=== PATIENT | male | born 1950 | race Two or more races ===

== ENCOUNTER 2018-07-19 01:50 | Emergency (ER) | payer OTHER ==
[~2018-07-19] VITALS: Ht 172.7 cm; Wt 79.4 kg
[2018-07-19] MEDS ORDERED: CRESTOR40 MG (02:02)
[2018-07-19] MEDS ORDERED: PLAVIX75 MG (02:02)
[2018-07-19] MEDS ORDERED: ASPIR 8181 MG (02:02)
[2018-07-19] MEDS ORDERED: LEVSIN/SL0.125 MG SL (05:20)
[2018-07-19] MEDS ORDERED: PEPCID AC20 MG PO (05:20)
[2018-07-19] MEDS ORDERED: KETO10TA2 PO (05:20)
== END 2018-07-19 05:41 ==
LOC: ER 01:50
DX: K80.20 Calculus of gallbladder without cholecystitis without obstruction (principal); R10.10 Upper abdominal pain, unspecified

== ENCOUNTER 2018-11-01 07:24 | Outpatient (CLI) | payer OTHER ==
[~2018-11-01 07:24] MED LIST: ASPIR 8181 MG; CRESTOR40 MG; KETO10TA2 PO; LEVSIN/SL0.125 MG SL; PEPCID AC20 MG PO; PLAVIX75 MG
== END 2018-11-01 07:31 | disposition home or self-care (01) ==
LOC: TOM 07:24
DX: K80.80 Other cholelithiasis without obstruction (principal)

== ENCOUNTER 2018-11-08 13:36 | Outpatient (CLI) | payer OTHER | END 2018-11-08 14:20 | disposition home or self-care (01) | LOC: LAB 13:36 | DX: D69.49 Other primary thrombocytopenia (principal) ==

== ENCOUNTER 2018-11-14 11:46 | Outpatient (CLI) | payer OTHER | END 2018-11-14 11:59 | disposition home or self-care (01) | LOC: RAD 11:46 | DX: M25.561 Pain in right knee (principal); M25.562 Pain in left knee ==

== ENCOUNTER 2018-11-21 07:14 | Outpatient (CLI) | payer OTHER | END 2018-11-21 07:28 | disposition home or self-care (01) | LOC: NUCLEAR 07:14 | DX: K80.20 Calculus of gallbladder without cholecystitis without obstruction (principal) | CPT/HCPCS: 78227; A9537 ==

== ENCOUNTER 2019-01-24 14:08 | Outpatient (CLI) | payer OTHER | END 2019-01-24 14:16 | disposition home or self-care (01) | LOC: RAD 14:08 | DX: J44.1 Chronic obstructive pulmonary disease with (acute) exacerbation (principal) ==

== ENCOUNTER 2019-01-30 07:25 | Outpatient (CLI) | payer OTHER | END 2019-01-30 09:32 | disposition home or self-care (01) | LOC: LAB 07:25 | DX: Z79.01 Long term (current) use of anticoagulants (principal); K80.10 Calculus of gallbladder with chronic cholecystitis without obstruction; I10 Essential (primary) hypertension ==

== ENCOUNTER 2019-02-01 05:50 | Day surgery (SDC) | payer OTHER ==
[2019-02-01] MEDS ORDERED: PERCOCET 5-3251 EACH PO (11:00)
[2019-02-01] MEDS ORDERED: POLY119PG PO (11:01)
[2019-02-01] MEDS ORDERED: SURFAK240 M1 PO (11:01)
== END 2019-02-01 13:25 | disposition home or self-care (01) ==
LOC: CIR.AMB 05:50
DX: K80.10 Calculus of gallbladder with chronic cholecystitis without obstruction (principal); K42.9 Umbilical hernia without obstruction or gangrene; K43.9 Ventral hernia without obstruction or gangrene

== ENCOUNTER 2019-05-25 12:27 | Outpatient (CLI) | payer OTHER ==
[~2019-05-25 12:27] MED LIST changes: +PERCOCET 5-3251 EACH PO; +POLY119PG PO; +SURFAK240 M1 PO
== END 2019-05-25 12:30 | disposition home or self-care (01) ==
LOC: LAB 12:27
DX: I10 Essential (primary) hypertension (principal); K40.90 Unilateral inguinal hernia, without obstruction or gangrene, not specified as recurrent

== ENCOUNTER 2019-05-31 06:54 | Day surgery (SDC) | payer OTHER ==
[2019-05-31] MEDS ORDERED: SURFAK240 M1 PO (12:47)
[2019-05-31] MEDS ORDERED: POLY119PG PO ×2 (12:47→12:54)
[2019-05-31] MEDS ORDERED: PERCOCET 5-3251 EACH PO (12:47)
[2019-05-31] MEDS ORDERED: NEURONTIN800 MG PO (12:48)
[2019-05-31] MEDS ORDERED: ULTRACET PO (12:54)
== END 2019-05-31 21:35 | disposition home or self-care (01) ==
LOC: CIR.AMB 06:54
DX: K40.90 Unilateral inguinal hernia, without obstruction or gangrene, not specified as recurrent (principal); K42.0 Umbilical hernia with obstruction, without gangrene; K43.0 Incisional hernia with obstruction, without gangrene

== ENCOUNTER → 2020-12-20 07:23 | Outpatient (CLI) | payer OTHER ==
[~2020-12-20 07:23] MED LIST changes: +NEURONTIN800 MG PO; +ULTRACET PO
== END | disposition home or self-care (01) ==
LOC: NUCLEAR 07:00
PROVIDERS: ATTEND Internal Medicine Cardiovascular Disease
DX: I50.1 Left ventricular failure, unspecified (principal)
CPT/HCPCS: 78452; 93017; A9500; J0153

== ENCOUNTER 2021-01-16 11:08 | Outpatient (CLI) | payer OTHER | END 2021-01-16 11:15 | disposition home or self-care (01) | LOC: SONOGRAMA 11:08 | PROVIDERS: ATTEND Urology | DX: Q61.01 Congenital single renal cyst (principal); N40.0 Benign prostatic hyperplasia without lower urinary tract symptoms ==

== ENCOUNTER → 2021-01-16 12:03 | Outpatient (CLI) | payer OTHER | END | disposition home or self-care (01) | LOC: LAB 12:03 | PROVIDERS: ATTEND Urology | DX: N40.0 Benign prostatic hyperplasia without lower urinary tract symptoms (principal); R97.20 Elevated prostate specific antigen [PSA]; R31.1 Benign essential microscopic hematuria; B96.89 Other specified bacterial agents as the cause of diseases classified elsewhere ==

== ENCOUNTER → 2021-05-02 07:12 | Outpatient (CLI) | payer OTHER | END | disposition home or self-care (01) | LOC: LAB 07:12 | PROVIDERS: ATTEND Internal Medicine Cardiovascular Disease | DX: I11.9 Hypertensive heart disease without heart failure (principal); E78.2 Mixed hyperlipidemia; E11.9 Type 2 diabetes mellitus without complications ==

== ENCOUNTER 2021-06-26 11:58 | Outpatient (CLI) | payer OTHER | END 2021-06-26 12:03 | disposition home or self-care (01) | LOC: RAD 11:58 | PROVIDERS: ATTEND Internal Medicine | DX: M54.2 Cervicalgia (principal); M15.0 Primary generalized (osteo)arthritis ==

== ENCOUNTER 2021-07-14 07:18 | Outpatient (CLI) | payer OTHER | END 2021-07-14 07:23 | disposition home or self-care (01) | LOC: MRI 07:18 | PROVIDERS: ATTEND Internal Medicine | DX: M54.2 Cervicalgia (principal) | CPT/HCPCS: 72141 ==

== ENCOUNTER 2021-07-22 06:54 | Outpatient (CLI) | payer OTHER | END 2021-07-22 07:02 | disposition home or self-care (01) | LOC: LAB 06:54 | PROVIDERS: ATTEND Internal Medicine | DX: N40.0 Benign prostatic hyperplasia without lower urinary tract symptoms (principal); R97.20 Elevated prostate specific antigen [PSA]; R31.1 Benign essential microscopic hematuria; Z68.30 Body mass index [BMI] 30.0-30.9, adult; E78.00 Pure hypercholesterolemia, unspecified; E55.9 Vitamin D deficiency, unspecified; E11.69 Type 2 diabetes mellitus with other specified complication; D50.0 Iron deficiency anemia secondary to blood loss (chronic); N39.0 Urinary tract infection, site not specified ==

== ENCOUNTER 2021-10-06 08:38 | Outpatient (CLI) | payer OTHER | END 2021-10-06 08:41 | disposition home or self-care (01) | LOC: SONOGRAMA 08:38 | PROVIDERS: ATTEND Urology | DX: R31.1 Benign essential microscopic hematuria (principal); R33.9 Retention of urine, unspecified; N40.0 Benign prostatic hyperplasia without lower urinary tract symptoms ==

== ENCOUNTER 2021-11-13 08:50 | Outpatient (CLI) | payer OTHER | END 2021-11-13 09:17 | disposition home or self-care (01) | LOC: LAB 08:50 | PROVIDERS: ATTEND Internal Medicine Hematology & Oncology | DX: D50.8 Other iron deficiency anemias (principal); I10 Essential (primary) hypertension; R79.9 Abnormal finding of blood chemistry, unspecified; R74.02 Elevation of levels of lactic acid dehydrogenase [LDH]; K76.89 Other specified diseases of liver; D69.6 Thrombocytopenia, unspecified; D51.1 Vitamin B12 deficiency anemia due to selective vitamin B12 malabsorption with proteinuria; D51.0 Vitamin B12 deficiency anemia due to intrinsic factor deficiency; B17.9 Acute viral hepatitis, unspecified; Z11.59 Encounter for screening for other viral diseases; E06.3 Autoimmune thyroiditis; D68.32 Hemorrhagic disorder due to extrinsic circulating anticoagulants; I25.119 Atherosclerotic heart disease of native coronary artery with unspecified angina pectoris; Z98.61 Coronary angioplasty status; N41.9 Inflammatory disease of prostate, unspecified ==

== ENCOUNTER 2022-02-27 07:11 | Outpatient (CLI) | payer OTHER | END 2022-02-27 07:12 | disposition home or self-care (01) | LOC: NUCLEAR 07:11 | PROVIDERS: ATTEND Internal Medicine Cardiovascular Disease | DX: I25.9 Chronic ischemic heart disease, unspecified (principal); R07.89 Other chest pain | CPT/HCPCS: 78452; 93017; A9500 ==

== ENCOUNTER 2022-05-04 10:13 | Outpatient (CLI) | payer OTHER | END 2022-05-04 15:27 | disposition home or self-care (01) | LOC: LAB 10:13 | PROVIDERS: ATTEND Internal Medicine Hematology & Oncology | DX: D50.8 Other iron deficiency anemias (principal); R79.9 Abnormal finding of blood chemistry, unspecified; I10 Essential (primary) hypertension; R74.02 Elevation of levels of lactic acid dehydrogenase [LDH]; K76.89 Other specified diseases of liver; D51.8 Other vitamin B12 deficiency anemias; D51.1 Vitamin B12 deficiency anemia due to selective vitamin B12 malabsorption with proteinuria; R97.0 Elevated carcinoembryonic antigen [CEA]; R97.8 Other abnormal tumor markers; D68.32 Hemorrhagic disorder due to extrinsic circulating anticoagulants; N41.9 Inflammatory disease of prostate, unspecified; Z98.61 Coronary angioplasty status; I25.119 Atherosclerotic heart disease of native coronary artery with unspecified angina pectoris ==

== ENCOUNTER 2023-03-17 11:55 | Outpatient (CLI) | payer OTHER | END 2023-03-17 11:58 | disposition home or self-care (01) | LOC: RAD 11:55 | PROVIDERS: ATTEND Internal Medicine | DX: M75.80 Other shoulder lesions, unspecified shoulder (principal) ==

== ENCOUNTER 2023-05-06 12:11 | Outpatient (CLI) | payer OTHER ==
[2023-05-06 12:54] LABS: HEMATOCRIT 42.7 % (39.0-48.0); HEMOGLOBIN 14.5 g/dL (13-16.00); MEAN CELL VOLUME 94.5 fL (80.0-100.00); MEAN CORPUSCULAR HGB CONC 33.9 g/dl (32.0-36.0); RED BLOOD COUNT 4.51 M/uL (4.00-6.00); RED CELL DISTRIBUTION WIDTH 14.2 % (11.5-14.5)
[2023-05-06 12:55] LABS: PLATELET COUNT 120 K/uL (150-450)
[2023-05-06 13:36] LABS: BILIRUBIN TOTAL 1.15 mg/dL (0.3-1.2); CALCIUM 8.8 mg/dL (8.5-10.1); CREATININE SERUM 0.84 mg/dL (0.70-1.30); GFR 89.57; POTASSIUM 4.29 mEq/L (3.5-5.1); PROSTATIC SPECIFIC ANTIGEN 3.97 NG/ML (0.010-4.00)
[2023-05-06 13:58] LABS: FOLIC ACID 16.13 ng/ml (4.78-20)
[2023-05-06 14:08] LABS: MANUAL PLATELET COUNT 264
[2023-05-06 14:09] LABS: PLATELET ESTIMATE NORMAL (NORMAL)
== END 2023-05-06 12:13 | disposition home or self-care (01) ==
LOC: LAB 12:11
PROVIDERS: ATTEND Internal Medicine Hematology & Oncology
DX: R79.9 Abnormal finding of blood chemistry, unspecified (principal); I10 Essential (primary) hypertension; R74.02 Elevation of levels of lactic acid dehydrogenase [LDH]; K76.89 Other specified diseases of liver; D63.8 Anemia in other chronic diseases classified elsewhere; D55.0 Anemia due to glucose-6-phosphate dehydrogenase [G6PD] deficiency; D51.8 Other vitamin B12 deficiency anemias; R97.0 Elevated carcinoembryonic antigen [CEA]; R97.8 Other abnormal tumor markers; D47.2 Monoclonal gammopathy; C90.00 Multiple myeloma not having achieved remission; R97.20 Elevated prostate specific antigen [PSA]; D69.6 Thrombocytopenia, unspecified; D68.32 Hemorrhagic disorder due to extrinsic circulating anticoagulants; D51.3 Other dietary vitamin B12 deficiency anemia; I25.119 Atherosclerotic heart disease of native coronary artery with unspecified angina pectoris; Z98.61 Coronary angioplasty status; N41.9 Inflammatory disease of prostate, unspecified

== ENCOUNTER 2024-02-24 13:23 | Outpatient (CLI) | payer OTHER ==
[2024-02-24 13:39] LABS: HEMATOCRIT 44.7 % (39.0-48.0); HEMOGLOBIN 15.2 g/dL (13-16.00); MEAN CELL VOLUME 95.1 fL (80.0-100.00); MEAN CORPUSCULAR HEMOGLOBIN 32.3 pg (27.00-32.0); MEAN CORPUSCULAR HGB CONC 33.9 g/dl (32.0-36.0); PLATELET COUNT 135 K/uL (150-450); RED CELL DISTRIBUTION WIDTH 13.8 % (11.5-14.5)
== END 2024-02-24 13:24 | disposition home or self-care (01) ==
LOC: LAB 13:23
PROVIDERS: ATTEND Internal Medicine Cardiovascular Disease
DX: D64.9 Anemia, unspecified (principal)

== ENCOUNTER 2024-02-24 13:41 | Outpatient (CLI) | payer OTHER | END 2024-02-24 13:45 | disposition home or self-care (01) | LOC: SONOGRAMA 13:41 | PROVIDERS: ATTEND Internal Medicine Cardiovascular Disease | DX: S30.1XXA Contusion of abdominal wall, initial encounter (principal); M79.81 Nontraumatic hematoma of soft tissue ==

== ENCOUNTER 2024-04-21 11:20 | Outpatient (CLI) | payer OTHER | END 2024-04-21 11:27 | disposition home or self-care (01) | LOC: RAD 11:20 | PROVIDERS: ATTEND Internal Medicine Rheumatology | DX: M19.041 Primary osteoarthritis, right hand (principal); M19.042 Primary osteoarthritis, left hand ==

== ENCOUNTER 2024-05-26 08:29 | Outpatient (CLI) | payer OTHER ==
[2024-05-26 09:01] LABS: HEMATOCRIT 44.2 % (39.0-48.0); HEMOGLOBIN 15.3 g/dL (13-16.00); MEAN CELL VOLUME 93.1 fL (80.0-100.00); MEAN CORPUSCULAR HEMOGLOBIN 32.1 pg (27.00-32.0); MEAN CORPUSCULAR HGB CONC 34.5 g/dl (32.0-36.0); PLATELET COUNT 135 K/uL (150-450); RED BLOOD COUNT 4.75 M/uL (4.00-6.00); RED CELL DISTRIBUTION WIDTH 13.7 % (11.5-14.5)
[2024-05-26 10:19] LABS: MANUAL PLATELET COUNT 212; PLATELET ESTIMATE NORMAL (NORMAL)
[2024-05-26 10:32] LABS: % SATURACION 27.6 % (20-50); ALBUMIN 3.9 gm/dL (3.4-5.0); BILIRUBIN TOTAL 0.68 mg/dL (0.3-1.2); CALCIUM 9.2 mg/dL (8.5-10.1); CREATININE SERUM 0.85 mg/dL (0.70-1.30); FERRITIN 150.3 NG/ML (26-388); GFR 88.11; POTASSIUM 4.49 mEq/L (3.5-5.1); PROSTATIC SPECIFIC ANTIGEN 3.89 NG/ML (0.010-4.00); TOTAL PROTEIN 6.9 gm/dL (6.4-8.2)
[2024-05-26 12:03] LABS: FOLIC ACID 11.96 ng/ml (4.78-20); VITAMIN D3 25 HYDROXY 19.88 ng/ml (30-120)
== END 2024-05-26 08:30 | disposition home or self-care (01) ==
LOC: LAB 08:29
PROVIDERS: ATTEND Internal Medicine Hematology & Oncology
DX: D69.6 Thrombocytopenia, unspecified (principal); D50.8 Other iron deficiency anemias; D51.3 Other dietary vitamin B12 deficiency anemia; I10 Essential (primary) hypertension; I25.119 Atherosclerotic heart disease of native coronary artery with unspecified angina pectoris; Z98.61 Coronary angioplasty status; N41.9 Inflammatory disease of prostate, unspecified; R79.9 Abnormal finding of blood chemistry, unspecified; K76.89 Other specified diseases of liver; R74.02 Elevation of levels of lactic acid dehydrogenase [LDH]; E55.9 Vitamin D deficiency, unspecified; R97.0 Elevated carcinoembryonic antigen [CEA]

== ENCOUNTER → 2024-08-23 08:44 | Outpatient (CLI) | payer OTHER ==
[2024-08-23 09:23] LABS: HEMATOCRIT 44.2 % (39.0-48.0); HEMOGLOBIN 14.7 g/dL (13-16.00); MEAN CELL VOLUME 94.9 fL (80.0-100.00); MEAN CORPUSCULAR HEMOGLOBIN 31.6 pg (27.00-32.0); MEAN CORPUSCULAR HGB CONC 33.3 g/dl (32.0-36.0); RED BLOOD COUNT 4.65 M/uL (4.00-6.00); RED CELL DISTRIBUTION WIDTH 13.4 % (11.5-14.5)
[2024-08-23 09:32] LABS: PH,URINE 5.5 (5.0-8.0); URINE APPEARANCE Clear; URINE BILIRRUBIN Negative (NEGATIVE); URINE BLOOD Small; URINE COLOR Yellow; URINE GLUCOSE Negative (NEGATIVE); URINE KETONE Negative (NEGATIVE); URINE LEUKOCYTE Negative; URINE NITRATE Negative; URINE PROTEIN Negative (NEGATIVE); URINE UROBILINOGEN 0.2 E.U./dl
[2024-08-23 09:38] LABS: URINE BACTERIA 7.3 uL (0.0-1933); URINE RBC 25.4 uL (0.0-20.8); URINE WBC 4.1 uL (0.0-23.2)
[2024-08-23 09:47] LABS: URINE EPITHELIAL CELLS 0.7 uL (0.0-38.8)
[2024-08-23 09:59] LABS: PLATELET COUNT 124 K/uL (150-450)
[2024-08-23 10:36] LABS: BILIRUBIN TOTAL 0.77 mg/dL (0.3-1.2); CALCIUM 9.2 mg/dL (8.5-10.1); CHOL HDL RATIO 2.1 (0-5.0); CREATININE SERUM 0.88 mg/dL (0.70-1.30); GFR 84.65; GLOBULINA 2.9 G/DL (2.4-3.5); POTASSIUM 4.6 mEq/L (3.5-5.1); PROSTATIC SPECIFIC ANTIGEN 3.65 NG/ML (0.010-4.00); TOTAL PROTEIN 6.9 gm/dL (6.4-8.2); TSH 1.02 uIU/mL (0.358-3.74)
== END | disposition home or self-care (01) ==
LOC: LAB 08:44
PROVIDERS: ATTEND Internal Medicine
DX: D64.9 Anemia, unspecified (principal); E11.9 Type 2 diabetes mellitus without complications; E78.00 Pure hypercholesterolemia, unspecified; N39.0 Urinary tract infection, site not specified; E03.8 Other specified hypothyroidism; N18.31 Chronic kidney disease, stage 3a; Z12.11 Encounter for screening for malignant neoplasm of colon; E55.9 Vitamin D deficiency, unspecified; N40.0 Benign prostatic hyperplasia without lower urinary tract symptoms

== ENCOUNTER 2024-08-28 09:46 | Outpatient (CLI) | payer OTHER ==
[2024-08-28 11:09] LABS: ob NEGATIVE (NEGATIVE)
== END 2024-08-28 09:47 | disposition home or self-care (01) ==
LOC: LAB 09:46
PROVIDERS: ATTEND Internal Medicine
DX: D64.9 Anemia, unspecified (principal); E11.9 Type 2 diabetes mellitus without complications; E78.00 Pure hypercholesterolemia, unspecified; N39.0 Urinary tract infection, site not specified; E03.8 Other specified hypothyroidism; N18.31 Chronic kidney disease, stage 3a; Z12.11 Encounter for screening for malignant neoplasm of colon; E55.9 Vitamin D deficiency, unspecified; N40.0 Benign prostatic hyperplasia without lower urinary tract symptoms

== ENCOUNTER 2024-09-08 07:11 | Outpatient (CLI) | payer OTHER | END 2024-09-08 07:14 | disposition home or self-care (01) | LOC: RAD 07:11 | PROVIDERS: ATTEND Internal Medicine | DX: M15.0 Primary generalized (osteo)arthritis (principal); N50.811 Right testicular pain ==

== ENCOUNTER 2024-09-10 23:27 | Emergency (ER) | payer OTHER ==
[~2024-09-10] VITALS: Ht 172.7 cm; Wt 82.6 kg
[2024-09-11] MEDS ORDERED: CRESTOR40 MG PO (00:20)
[2024-09-11] MEDS ORDERED: TAMS0.4C PO (00:21)
[2024-09-11] MEDS ORDERED: ECOTRIN81 MG (00:21)
== END 2024-09-11 | disposition left against medical advice (07) ==
LOC: ER 23:30
DX: Z53.21 Procedure and treatment not carried out due to patient leaving prior to being seen by health care provider (principal)

== ENCOUNTER 2025-02-15 07:17 | Outpatient (CLI) | payer OTHER ==
[~2025-02-15 07:17] MED LIST changes: +CRESTOR40 MG PO; +ECOTRIN81 MG; +TAMS0.4C PO
[2025-02-15 08:18] LABS: BASO % 0.8 % (0.1-1.2); EOS # 0.13 (0.04-0.54); EOS % 1.7 % (0.7-7.0); LYMPH # 1.54 (1.18-3.74); LYMPH % 20.6 % (19.3-53.1); MEAN PLATELET VOLUME 10.30 fl (9.4-12.4); MONO # 0.77 (0.24-0.82); MONO % 10.3 % (4.7-12.5); NEUT # 4.91 (1.56-6.13); NEUT % 65.7 % (34.0-71.1); RED CELL DISTRIBUTION WIDTH 12.6 % (11.6-14.4)
[2025-02-15 09:38] LABS: % SATURACION 33.4 % (20-50); ALT/SGPT 40.0 U/L (12-78); AST/SGOT 23.0 U/L (15-37); BILIRUBIN TOTAL 0.95 mg/dL (0.3-1.2); BUN CREA RATIO 23.0 (7.0-25.0); CREATININE SERUM 0.9 mg/dL (0.70-1.30); FE 103.0 ug/dl (65-175); GFR 82.26; GLOBULINA 3.0 G/DL (2.4-3.5); GLUCOSE FASTING 88.0 mg/dL (65-100); LDH 188.0 U/L (87-241); OSMOLALITY SERUM 287.0 MOSM/KG (275-295); PROSTATIC SPECIFIC ANTIGEN 3.64 NG/ML (0.010-4.00)
[2025-02-15 13:51] LABS: MANUAL PLATELET COUNT 159
[2025-02-15 14:26] LABS: FOLIC ACID 7.13 ng/ml (4.78-20); VITAMIN D3 25 HYDROXY 35.92 ng/ml (30-120)
== END 2025-02-15 07:22 | disposition home or self-care (01) ==
LOC: LAB 07:17
PROVIDERS: ATTEND Internal Medicine Hematology & Oncology
DX: D50.8 Other iron deficiency anemias (principal); R79.9 Abnormal finding of blood chemistry, unspecified; I10 Essential (primary) hypertension; R74.02 Elevation of levels of lactic acid dehydrogenase [LDH]; K76.89 Other specified diseases of liver; E55.9 Vitamin D deficiency, unspecified; R97.0 Elevated carcinoembryonic antigen [CEA]; R97.8 Other abnormal tumor markers; R97.20 Elevated prostate specific antigen [PSA]; D69.6 Thrombocytopenia, unspecified; D68.32 Hemorrhagic disorder due to extrinsic circulating anticoagulants; D51.3 Other dietary vitamin B12 deficiency anemia; I25.119 Atherosclerotic heart disease of native coronary artery with unspecified angina pectoris; Z98.61 Coronary angioplasty status; N41.9 Inflammatory disease of prostate, unspecified